=== PATIENT | female | born 1950 | race Caucasian/White ===

== ENCOUNTER 2017-05-09 21:35 | Emergency (ER) | payer OTHER ==
[~2017-05-09] VITALS: Ht 170.2 cm; Wt 107.5 kg
[~2017-05-09 21:35] MED LIST: BAYER CHEWABLE81 MG PO; EQL FLAXSEED O1 EACH; FISH OIL PO; FLAXSEED PO; FOSAMAX 70 MG T70 MG PO; VITAMIN B12-FO1 EAC1 PO; VITAMIN D400 UNI1 PO; ZOFRAN4 MG PO
[2017-05-09] MEDS ORDERED: PREDNISONE 10 M10 MG PO (23:21)
[2017-05-09 23:32] VITALS: BP 179/107
== END 2017-05-09 23:33 | disposition home or self-care (01) ==
LOC: M.ERS 21:35
DX: M17.12 Unilateral primary osteoarthritis, left knee (principal); E78.00 Pure hypercholesterolemia, unspecified; M81.0 Age-related osteoporosis without current pathological fracture; Z88.0 Allergy status to penicillin; Z91.041 Radiographic dye allergy status

== ENCOUNTER → 2020-05-31 | Outpatient (CLI) | payer MEDICARE, OTHER ==
[~2020-05-31] MED LIST changes: +PREDNISONE 10 M10 MG PO
== END ==
LOC: M.NUC 05-30 07:45
PROVIDERS: ATTEND Internal Medicine Gastroenterology
DX: R10.13 Epigastric pain (principal)

== ENCOUNTER → 2020-07-03 | Outpatient (CLI) | payer MEDICARE, OTHER ==
[2020-07-03 07:54] LABS: CREATININE 0.6 mg/dL (0.6-1.3)
== END ==
LOC: M.LAB 06-26 08:30 → M.CT 06-26 09:30 → M.LAB 07:31
PROVIDERS: ATTEND Internal Medicine Gastroenterology
DX: R19.5 Other fecal abnormalities (principal); M47.816 Spondylosis without myelopathy or radiculopathy, lumbar region; M41.86 Other forms of scoliosis, lumbar region

== ENCOUNTER 2020-08-14 10:54 | Emergency (ER) | payer MEDICARE, OTHER ==
[~2020-08-14] VITALS: Ht 172.7 cm; Wt 63.5 kg
[2020-08-14 11:20] VITALS: BP 127/75
== END 2020-08-14 11:22 | disposition left against medical advice (07) ==
LOC: M.ERS 10:54
DX: Z53.21 Procedure and treatment not carried out due to patient leaving prior to being seen by health care provider (principal)